=== PATIENT | male | born 1990 | race Two or more races ===

== ENCOUNTER 2016-12-22 14:32 | Emergency (ER) | payer SELFPAY ==
[2016-12-22] MEDS ORDERED: KETOROLAC TROMETHAMINE 60 MG/2 ML VIAL ONE (15:10)
== END 2016-12-22 15:46 | disposition home or self-care (01) ==
LOC: ED 14:32
DX: M54.42 Lumbago with sciatica, left side (principal); Z79.1 Long term (current) use of non-steroidal anti-inflammatories (NSAID)